=== PATIENT | female | born 1955 | race Caucasian/White ===

== ENCOUNTER 2016-06-30 05:14 | Day surgery (SDC) | payer MEDICARE ==
[2016-06-29 13:12] LABS: HEMATOCRIT 45.3 % (36.0-48.0); HEMOGLOBIN 15.4 g/dL (12-16); MCH 30.8 pg (26.0-34.0); MCV 90.6 fL (80.0-100.0); MEAN PLATELET VOLUME 9.4 fL (7.4-10.4); RDW 13.1 % (11.5-14.5); WBC 7.8 10x3/uL (4.8-10.8)
[2016-06-29 13:27] LABS: ANION GAP 13.1 mmol/L (8-16); CALCIUM 9.6 mg/dL (8.5-10.1); CARBON DIOXIDE 27.1 mmol/L (21.0-32.0); CREATININE - SERUM 0.9 mg/dL (0.6-1.3); POTASSIUM - SERUM 4.2 mmol/L (3.5-5.1)
[~2016-06-30] VITALS: Ht 165.1 cm; Wt 88.6 kg
[2016-06-30] VITALS (9 sets, daily range): BP systolic 115–152; BP diastolic 56–94; Ht 165.1 cm; Wt 88.6 kg
[~2016-06-30 05:14] MED LIST: AMBIEN10 MG PO; BUSPAR 15 MG TA15 MG PO; CYPROHEPTADINE H4 MG PO; KLONOPIN0.5 MG PO; NUCYNTA50 MG PO; PEPCID AC20 MG PO; PHENERGAN25 M1 PO; SYNTHROID25 MCG PO; TOPROL XL100 MG PO; TUMERIC PO; VITAMIN B-121000 MCG PO; VITAMIN D5000 UNIT PO; VITAMIN E400 UNI2 PO; ZANAFLEX4 MG PO
--- NOTE | 2016-06-30 16:30 | NUR ---
PATIENT IS AWAKE, ALERT AND ORIENTED X'S 4. RESPIRATIONS ARE EVEN AND UNLABORED. DAUGHTER IS AT BEDSIDE. 5 LAP SITES WITH BANDAIDS CLEAN, DRY AND INTACT. NO SIGNS OF DISTRESS NOTED.
[2016-07-01 01:30] VITALS: BP 125/67
--- NOTE | 2016-07-01 04:00 | NUR ---
PATIENT SLEEPING WITH NO DISTRESS NOTED. RR EVEN AND UNLABORED. 0 S/S OF DISTRESS. IV TO LEFT HAND PATENT WITH NO REDNESS OR SWELLING. LAP SITES X 5 TO ABD WITH STERISTRIPS. SRX2. BED LOW. CALL LIGHT WITHIN REACH.
[2016-07-01 05:00] VITALS: BP 106/72
[2016-07-01 05:14] LABS: BASOPHILS 0 % (0.0-2.0); EOSINOPHILS 0 % (0-7); IMMATURE GRANULOCYTES 0.2 % (0-5); LYMPHOCYTES 7.1 % (15-50); MCH 30.4 pg (26.0-34.0); MCHC 33.2 g/dL (31.0-37.0); MCV 91.4 fL (80.0-100.0); MEAN PLATELET VOLUME 9.4 fL (7.4-10.4); MONOCYTES 5.3 % (2-11); NEUTROPHILS 87.4 % (40-80); PLATELET COUNT 136 10x3/uL (130-400); RBC 4.05 10x6/uL (4.00-5.40); RDW 13.2 % (11.5-14.5)
[2016-07-01 05:17] LABS: HEMOGLOBIN 12.3 g/dL (12-16); WBC 12.8 10x3/uL (4.8-10.8)
[2016-07-01 05:42] LABS: ALBUMIN 3.2 g/dL (3.4-5.0); ALKALINE PHOSPHATASE 90 U/L (46-116); ALT (SGPT) 243 U/L (10-68); BILIRUBIN - TOTAL 0.58 mg/dL (0.2-1.3); CALC OSMOLALITY 282 mosm/kg (275-300); CALCIUM 8.5 mg/dL (8.5-10.1); CARBON DIOXIDE 25.3 mmol/L (21.0-32.0); CHLORIDE - SERUM 104 mmol/L (98-107); CREATININE - SERUM 0.8 mg/dL (0.6-1.3); GLUCOSE 149 mg/dL (74-106); PHOSPHOROUS 3.8 mg/dL (2.5-4.9); POTASSIUM - SERUM 4.1 mmol/L (3.5-5.1); SODIUM 139 mmol/L (136-145); UREA NITROGEN 17 mg/dL (7-18); eGFR NON AFRICAN AMERICAN 77 mL/min (90-120)
--- NOTE | 2016-07-01 07:00 | NUR ---
REPORT RECIEVED ASSUMED CARE. PATIENT IN BED WITH IV INTACT. CALL LIGHT WITHIN REACH.
[2016-07-01 08:00] VITALS: BP 107/65
--- NOTE | 2016-07-01 10:15 | NUR ---
PATIENT IV LEAKING. REMOVED WITH CATH TIP INTACT. PATIENT BEING DC'D. WILL RESTART IF NEEDS LATER. NO COMPLAINTS AT THIS TIME. CALL LIGHT WITHIN REACH.
[2016-07-01] MEDS ORDERED: DILAUDID2 MG PO (11:07)
--- NOTE | 2016-07-01 11:50 | NUR ---
DISCHARGE PAPERS GIVEN BY DENISA TIDWELL. PATIENT AWAITING WC FOR DISCHARGE.
--- NOTE | 2016-08-13 09:40 | OP ---
PATIENT NAME: LUZ NI MEDICAL RECORD: [id number] :51 LOCATION:D.OPS ADMISSION DATE: SURGEON: JAMA DEL REAL MD DATE OF OPERATION: 06/30/2016 PREOPERATIVE DIAGNOSES: 1. Intractable gastroesophageal reflux. 2. Volume and gastroesophageal reflux. 3. Hiatal hernia. POSTOPERATIVE DIAGNOSES: 1. Intractable gastroesophageal reflux. 2. Volume and gastroesophageal reflux. 3. Hiatal hernia was moderately sized. PROCEDURE: 1. Laparoscopic posterior crural repair. 2. Laparoscopic Mallorie fundoplication. SURGEON: Jama Del Real MD. PATTERN CHECKER: None. BLOOD LOSS: Minimal. ANESTHESIA: General. COMPLICATIONS: None. The risks, possible complications and alternatives to procedure were explained to the patient. She elects to proceed. OPERATIVE COURSE: The patient was conveyed to the operating room electively on 06/30/2016. General anesthesia was induced by the anesthesia staff. The abdomen was sterilely prepped and draped. A small skin ania was accomplished in the left upper quadrant. Veress needle was inserted through the skin ania into the peritoneal cavity. CO2 insufflation was begun. Once a sufficient pneumoperitoneum had been achieved, a 5-mm trocar was inserted through an incision in the left upper quadrant. Under direct internal vision utilizing television camera in the infraxiphoid epigastric area, a Juan Manuel retractor was placed and it was placed under the left lateral segment of the liver and fixated in place. At the umbilicus, a 5-mm trocar was inserted. Two more trocars were inserted; these were 8 mm trocars; one inserted in the right upper quadrant and one inserted in the epigastrium. During insertion of the Veress needle and all trocars, there appeared to have been no injury to the bowels, any intraperitoneal or retroperitoneal structures. I divided the phrenicoesophageal ligament. I reduced the hiatal hernia. I took down some of the short gastrics with the Harmonic scalpel. Retroesophageal dissection was performed bluntly. The crura posteriorly were closed with interrupted simple 2-0 Surgidac sutures utilizing an extrapleural knot tying technique. A [place] was placed around the esophagogastric junction. It was used for retraction. OPERATIVE REPORT [id number] LUZ NI I grasped the fundus of the stomach and brought it around behind the esophagus. I performed a 3-stitch Mallorie fundoplication suturing the left side of the fundus to the esophagus in the right side of the fundus utilizing 2-0 Surgidac sutures. I irrigated and aspirated. There was no bleeding even at low pressure of 8. All trocars were removed and the abdomen desufflated. Skin incision at the umbilicus was closed with interrupted 4-0 Vicryl Rapide sutures. The other skin incisions were closed with interrupted 3-0 Vicryls. Benzoin and Steri-Strips were applied. The patient was then extubated and conveyed to post-anesthesia care unit where she was in stable condition. TRANSINT:[id number] Voice Confirmation ID: [id number] DOCUMENT ID: [id number] JAMA DEL REAL MD at 0940 CC: SYLVIA FROST MD, RUSS VERAS MD, MAI SANCHEZ MD and [id number] DICTATION DATE: 06/30/16 1527 CONTRACT ASSISTANT: 06/30/162001 [facility] 07/01/16 [id number] [place] [address]
--- NOTE | 2016-08-13 09:40 | HP ---
PATIENT: LUZ NI MEDICAL RECORD: [id number] ACCOUNT: [id number] LOCATION:JENN : 51 ADMISSION DATE: 06/30/16 HISTORY AND PHYSICAL EXAMINATION CHIEF COMPLAINT: Reflux. HISTORY OF PRESENT ILLNESS: The patient has volume reflux. She states that she woke up in the middle night with a vomitus coming out through her nose. She is waking up with a bitter taste in her mouth. She is waking up having vomited on her pillow. She has hoarseness in the evening, likely indicating some micro respiration reflux. The patient is on maximum medical therapy. She is on a PPI as well as an H2 salas. We discussed the different operative procedures. I told her that specifically she would not undergo a transoral incisionless fundoplication today. Instead, she will undergo a laparoscopic Mallorie fundoplication. The risks, possible complications and alternatives to procedure were explained to the patient. She elects to proceed. Upper GI with small bowel follow-through revealed a moderately sized sliding hiatal hernia. She does have some gastroparesis and I told her that this procedure would likely not make her gastroparesis any better, as a matter of fact, it could make it worse. We also discussed the possibility of dysphagia up after the procedure. We discussed the bloat syndrome and the probability that she would be unable to vomit or belch after the procedure. The patient elects to proceed. The patient has epigastric abdominal pain. PAST MEDICAL AND SURGICAL HISTORY: Insomnia, depression, anxiety, gastroesophageal reflux, volume reflux, hypertension and chronic nausea. HOME MEDICINES: She is on allergy medicines, Ambien, buspirone, clonazepam, Dymista spray, famotidine, Fiorinal, metoprolol, omeprazole, Phenergan, promethazine, Reglan and vitamin D3. ALLERGIES TO MEDICINES: CODEINE, PENICILLIN, PERCOCET, CLINDAMYCIN, KEFLEX AND HYDROCODONE. PHYSICAL EXAMINATION: GENERAL: The patient does not appear acutely ill. She does not appear chronically ill. VITAL SIGNS: Reviewed. HEAD: External ears appear normal. EYES: Extraocular movements are intact. NECK: Trachea is midline. CHEST: No intercostal retractions. PULMONARY: Nonlabored, no stridor. ABDOMEN: Nontender. EXTREMITIES: No peripheral cyanosis. INTEGUMENT: No rash, no ulcerations. PSYCHIATRIC: Normal affect. HISTORY AND PHYSICAL [id number] LUZ NI NEUROLOGIC: Nonfocal, no lethargy. The patient answers questions appropriately, moves all extremities well. IMPRESSION: Intractable gastroesophageal reflux, volume gastroesophageal reflux. PLAN: Laparoscopic Mallorie fundoplication. TRANSINT:[id number] Voice Confirmation ID: [id number] DOCUMENT ID: [id number] JAMA DEL REAL MD at 0940 CC: SYLVIA FROST MD, RUSS VERAS MD, MAI SANCHEZ MD and [id number] Leonela TRAORE DICTATION DATE: 06/30/16 1101 FOOD SAFETY SPECIALIST: 06/30/[address] [facility] 07/01/16 [id number] [place] [address]
== END 2016-07-01 12:00 | disposition home or self-care (01) ==
LOC: D.MS 05:14 → D.OPS 05:14 → D.PAN 10:00 → D.OPS 10:45 → D.PAN 10:45 → D.MS 14:55 → D.OPS 07-01 12:00
PROVIDERS: Anesthesiology; Surgery
DX: K21.9 Gastro-esophageal reflux disease without esophagitis (principal); K44.9 Diaphragmatic hernia without obstruction or gangrene; K31.84 Gastroparesis; I10 Essential (primary) hypertension; G47.00 Insomnia, unspecified; F32.9 Major depressive disorder, single episode, unspecified; F41.9 Anxiety disorder, unspecified; Z79.899 Other long term (current) drug therapy; Z88.5 Allergy status to narcotic agent; Z88.0 Allergy status to penicillin; Z88.1 Allergy status to other antibiotic agents

== ENCOUNTER 2016-07-06 08:17 | Observation (INO) | payer MEDICARE ==
[~2016-07-06] VITALS: Ht 165.1 cm; Wt 97.5 kg
[~2016-07-06 08:17] MED LIST changes: +DILAUDID2 MG PO
[2016-07-06 09:15] LABS: BASOPHILS 0.3 % (0.0-2.0); EOSINOPHILS 3.5 % (0-7); HEMATOCRIT 36.3 % (36.0-48.0); HEMOGLOBIN 11.6 g/dL (12-16); IMMATURE GRANULOCYTES 0.3 % (0-5); LYMPHOCYTES 33.7 % (15-50); MCH 29.9 pg (26.0-34.0); MCV 93.6 fL (80.0-100.0); MEAN PLATELET VOLUME 8.7 fL (7.4-10.4); NEUTROPHILS 51.2 % (40-80); PLATELET COUNT 138 10x3/uL (130-400); RBC 3.88 10x6/uL (4.00-5.40); RDW 13.5 % (11.5-14.5); WBC 7.2 10x3/uL (4.8-10.8)
[2016-07-06 09:22] LABS: ALBUMIN 3.1 g/dL (3.4-5.0); ALKALINE PHOSPHATASE 107 U/L (46-116); ALT (SGPT) 170 U/L (10-68); BILIRUBIN - TOTAL 0.61 mg/dL (0.2-1.3); CALC OSMOLALITY 279 mosm/kg (275-300); CALCIUM 9.3 mg/dL (8.5-10.1); CHLORIDE - SERUM 101 mmol/L (98-107); CREATININE - SERUM 0.9 mg/dL (0.6-1.3); POTASSIUM - SERUM 3.9 mmol/L (3.5-5.1); PROTEIN - SERUM 7.1 g/dL (6.4-8.2); SODIUM 140 mmol/L (136-145); UREA NITROGEN 17 mg/dL (7-18); eGFR NON AFRICAN AMERICAN 67 mL/min (90-120)
[2016-07-06 09:23] LABS: GLUCOSE 79 mg/dL (74-106)
[2016-07-06 09:29] LABS: PRO BNP 213 pg/mL (0-125)
[2016-07-06 09:30] LABS: TROPONIN-I < 0.017 ng/mL (0.000-0.060)
--- NOTE | 2016-07-06 13:08 | NUR ---
received report from mac in ER at this time.
[2016-07-06 14:28] VITALS: BP 140/90; BMI 36.0
--- NOTE | 2016-07-06 15:18 | NUR ---
22 GAUGE IV PLACED TO RIGHT WRIST AT THIS TIME. PATIENT COMPLAIN THAT 20 GAUGE TO RIGHT AC HURTING AND THE TAPE IS BURNING HER SKIN. 22 GAUGE IV PLACED X 1 STICK. GOOD BLOOD RETURN, EASY FLUSH. TAPED, DATED AND SECURED. TOLERATED IV PLACEMENT WELL. 20 GAUGE IV REMOVED FROM RIGHT AC. CATHETER TIP INTACT. NO BLEEDING FROM SITE. 2X2 GAUZE APPLIED AND SECURED WITH SILK TAPE. IV FLUIDS INFUSING ORDERED. AT BEDSIDE AT THIS TIME PATIENT WAS DISCHARGED FROM HIS CARE LAST TUESDAY AFTER SURGICAL PROCEDURE. NO DISTRESS AT THIS TIME. CALL LIGHT WITHIN REACH.
[2016-07-06 15:36] VITALS: BP 123/60
--- NOTE | 2016-07-06 16:03 | NUR ---
PATIENT REFUSING VENOUS DOPPLER UNTIL PAIN MEDICATIONS ARE GIVEN. SPOKE WITH TERRI, NURSE PRACTITIONER AND SHE STATED SHE WOULD REVIEW MED REQ BUT WOULD NOT GIVE ORDERS FOR PAIN MEDICATION AT THIS TIME UNTIL MED REQ COMPARED WITH ORDERS FROM OFFICE.
--- NOTE | 2016-07-06 18:06 | NUR ---
PATIENT IS USED TO TAKING PO DILUADID AT HOME AND DOES NOT LIKE THE WAY THE IV DILAUDID MAKES HER FEEL, SHE STATES THAT IT CAUSES HER MUSCLES TO CRAMP. DILAUDID IV CHANGED TO PO ROUTE AT THIS TIME. PATIENT STATES SHE RECEIVED ONE DOSE OF DILAUDID IN THE ER AND DID NOT REALIZE WHAT WAS MAKING HER FEEL THAT WAY UNTIL THIS CASH PERSON SLOW PUSHED HYDROMORPHINE. ORDERS INPUTTED.
--- NOTE | 2016-07-06 18:45 | NUR ---
RESTING WELL IN BED WITH EYES OPEN. ATTENTION TOWARD CELLPHONE. CALL LIGHT WITHIN REACH. NO DISTRESS.
--- NOTE | 2016-07-06 19:25 | NUR ---
RESUMED CARE OF PT, IV-R.WRIST-D5 1/2NS @50, HAS 2+ edemda to lower legs, [id number], bed is low, srx2, call light in reach, will continue to monitor
[2016-07-06 21:04] VITALS: BP 133/78
[2016-07-07 01:48] VITALS: BP 130/55
--- NOTE | 2016-07-07 03:13 | NUR ---
ASSESSMENT COMPLETE AND CHARTED, PT SLEEPING, CALL LIGHT IN REACH
--- NOTE | 2016-07-07 04:00 | NUR ---
RESIDENT CARE MANAGER RN AT BEDSIDE FOR VS. CONT TO MONITOR.
[2016-07-07 05:05] VITALS: BP 164/87
[2016-07-07 05:22] LABS: BASOPHILS 0.3 % (0.0-2.0); EOSINOPHILS 3.3 % (0-7); HEMATOCRIT 37.9 % (36.0-48.0); HEMOGLOBIN 12.3 g/dL (12-16); IMMATURE GRANULOCYTES 0.3 % (0-5); LYMPHOCYTES 28.7 % (15-50); MCH 30.1 pg (26.0-34.0); MCHC 32.5 g/dL (31.0-37.0); MCV 92.9 fL (80.0-100.0); MEAN PLATELET VOLUME 8.5 fL (7.4-10.4); NEUTROPHILS 57.4 % (40-80); PLATELET COUNT 148 10x3/uL (130-400); RBC 4.08 10x6/uL (4.00-5.40); RDW 13.2 % (11.5-14.5); WBC 6.9 10x3/uL (4.8-10.8)
[2016-07-07 05:33] LABS: CALCIUM 8.7 mg/dL (8.5-10.1); CARBON DIOXIDE 28.9 mmol/L (21.0-32.0); CREATININE - SERUM 0.9 mg/dL (0.6-1.3); POTASSIUM - SERUM 3.9 mmol/L (3.5-5.1)
[2016-07-07 08:31] VITALS: BP 132/76
[2016-07-07 10:51] VITALS: Ht 165.1 cm; Wt 97.5 kg
[2016-07-07 12:00] VITALS: BP 160/67
[2016-07-07 16:22] VITALS: BP 148/90
--- NOTE | 2016-07-07 16:35 | NUR ---
ALERT AND ORIENTED X4. DENIES PAIN OR SOB. REQUESTING TO LEAVE. NOTIFY TERRI WITH [facility]. NEED TO READ RESULTS OF CT AND SEE PATIENT BEFORE DC. IV INFUSING RT WRIST ORDERED. CONTINUE PLAN OF CARE. CONTINUE SAFETY PRECAUTIONS.
[2016-07-07] MEDS ORDERED: LEVAQUIN750 MG PO (17:22)
--- NOTE | 2016-07-07 18:44 | NUR ---
ALERT AND ORIENTED X4. DC RT WRIST IV TIP INTACT. DISCHARGE INSTRUCTIONS GIVEN VERBALLY AND WRITTEN. DISCHARGE PAPERS SIGNED ON CHART. ESCORT TO RIDE VIA WHEELCHAIR. REMAINS FREE FROM INJURY.
== END 2016-07-07 18:45 | disposition home or self-care (01) ==
LOC: D.ER 08:17 → D.M2 12:30 → OBSVTIME 12:30 → D.M2 07-07 18:45
PROVIDERS: Emergency Medicine; ADMIT Family Medicine
DX: J18.9 Pneumonia, unspecified organism (principal); J98.2 Interstitial emphysema; K21.9 Gastro-esophageal reflux disease without esophagitis; G47.00 Insomnia, unspecified; F32.9 Major depressive disorder, single episode, unspecified; F41.9 Anxiety disorder, unspecified; I10 Essential (primary) hypertension; E78.5 Hyperlipidemia, unspecified; D68.51 Activated protein C resistance; D64.9 Anemia, unspecified; R74.0 Nonspecific elevation of levels of transaminase and lactic acid dehydrogenase [LDH]

== ENCOUNTER → 2016-07-08 17:36 | Outpatient (CLI) | payer MEDICARE ==
[2016-07-07 10:51] VITALS: BMI 35.7
[~2016-07-08 17:36] MED LIST changes: +LEVAQUIN750 MG PO
== END | disposition home or self-care (01) ==
LOC: D.CT 17:30
DX: R10.10 Upper abdominal pain, unspecified (principal)

== ENCOUNTER 2019-09-24 08:49 | Day surgery (SDC) | payer OTHER, MEDICAID ==
[~2019-09-24] VITALS: Ht 165.1 cm; Wt 86.2 kg
--- NOTE | ~2019-09-24 | OP ---
PATIENT NAME: LUZ NI MEDICAL RECORD: [id number] :51 LOCATION:[facility] ADMISSION DATE: SURGEON: MIKE CROTES MD DATE OF OPERATION: 09/24/2019 PREOPERATIVE DIAGNOSIS: Post-Perthes arthritis of the right hip. POSTOPERATIVE DIAGNOSIS: Post-Perthes arthritis of the right hip. PROCEDURE: Injection of the right hip. SURGEON: Mike Cortes MD ANESTHESIA: TIVA. INTRAOPERATIVE COMPLICATIONS: None. SUMMARY OF PATHOLOGIC FINDINGS: Radiographs did indeed reveal the patient to have a [id number] osteoarthritis with what looks to be an old Perthes injury given her history. OPERATIVE SUMMARY IN DETAIL: After obtaining the appropriate preoperative orthopedic surgery consent as well as anesthetic consultation, evaluation and clearance, the patient was brought to the operating room and placed on the operating table in a supine position. After adequate general TIVA anesthesia was administered, the patient's right hip was prepped and draped in routine sterile fashion. Under fluoroscopy, 18-gauge needle was then placed into the hip capsule. Small amount of Isovue was then utilized to be sure the needle was in the appropriate position and then 6 cc of 0.25% Marcaine with epinephrine and 40 mg of Depo-Medrol were injected into the hip. Needle tip was withdrawn. Bandage was applied. The patient was awakened and taken back to outpatient in stable condition. TRANSINT:[id number] Voice Confirmation ID: [id number] DOCUMENT ID: [id number] MIKE CORTES MD CC: [id number] DICTATION DATE: 09/27/19 0835 LEAD BUSINESS ANALYST: 09/27/19 1456 [facility] 09/24/[address] [address]
[~2019-09-24 08:49] MED LIST changes: +CYMBALTA60 MG PO; +LIPITOR20 MG PO; +LOPID600 MG PO; +TRAZODONE HCL150 MG PO
[2019-09-24 09:09] LABS: HEMATOCRIT 44.8 % (36.0-48.0); HEMOGLOBIN 14.8 g/dL (12-16); MCH 29.8 pg (26.0-34.0); MCV 90.3 fL (80.0-100.0); MEAN PLATELET VOLUME 8.4 fL (7.4-10.4); RBC 4.96 10x6/uL (4.00-5.40); RDW 12.9 % (11.5-14.5)
[2019-09-24 10:10] VITALS: BP 132/65; Ht 165.1 cm; Wt 86.2 kg
--- NOTE | 2019-09-24 16:03 | NUR ---
DC INSTRUCTIONS GIVEN TO PT. STATES UNDERSTANDING. DC'D IV CATH FULLY INTACT.
--- NOTE | 2019-09-24 16:20 | NUR ---
PT LEFT UNIT VIA WC AT 1613
== END 2019-09-24 16:13 | disposition home or self-care (01) ==
LOC: D.OPS 08:49 → D.PAN 11:40 → D.OPS 11:40 → D.PAN 13:15 → D.OPS 16:13
PROVIDERS: Anesthesiology; ATTEND Orthopaedic Surgery
DX: M25.551 Pain in right hip (principal); M16.9 Osteoarthritis of hip, unspecified; I10 Essential (primary) hypertension; E07.9 Disorder of thyroid, unspecified